=== PATIENT | male | born 1985 | race African-American/Black ===

== ENCOUNTER 2023-07-31 23:26 | Emergency (ER) | payer SELFPAY ==
[2023-07-31 23:31] VITALS: TEMP 98.8; BMI 23.7
[2023-08-01 00:13] LABS: BASO % 0.9 % (0-2.0); EOS % 3.7 % (0-4.5); HEMATOCRIT 23.6 % (35.4-49); HEMOGLOBIN 7.9 GM/dL (11.7-16.9); LYMPH % 9.1 % (8-40); MCH 31.3 pg (25.7-33.7); MCHC 33.4 g/dl (32.0-35.9); MEAN CELL VOLUME 93.7 fl (80-96); MEAN PLT VOLUME 6.6 fl (7.5-11.1); NEUT % 75.3 % (42.8-82.8); PLATELET COUNT 206 10^3/uL (134-434); RBC 2.51 M/mm3 (4.00-5.60); WHITE BLOOD COUNT 5.2 K/mm3 (4.0-10.0)
[2023-08-01 00:21] LABS: INR 1.17 (0.83-1.09); PROTHROMBIN TIME (PATIENT) 13.5 SEC (9.7-13.0)
[2023-08-01 00:24] LABS: ACTIVATED PTT 33.7 SECONDS (25.2-36.5)
[2023-08-01 01:00] LABS: CHLORIDE 99 mmol/L (98-107); POTASSIUM 3.5 mmol/L (3.5-5.1); SODIUM 137 mmol/L (136-145)
[2023-08-01 01:05] LABS: ALBUMIN 2.7 g/dl (3.4-5.0); ANION GAP 14 mmol/L (4-13); CALCIUM 8.9 mg/dL (8.5-10.1); CO2 24 mmol/L (21-32)
[2023-08-01 01:07] LABS: BLOOD UREA NITROGEN 46.1 mg/dL (7-18); GLUCOSE,RANDOM 104 mg/dL (74-106); SGOT/AST 18 U/L (15-37)
[2023-08-01 01:09] LABS: TOT PROT 6.7 g/dl (6.4-8.2)
[2023-08-01 01:10] LABS: CHOLESTEROL 125 mg/dL (50-200)
[2023-08-01 01:11] LABS: LDL CHOLESTEROL (ONLY SJRH) 48 mg/dL (5-100)
[2023-08-01 01:12] LABS: ALK PHOS 146 U/L (45-117); BILIRUBIN,TOTAL 0.7 mg/dL (0.2-1)
[2023-08-01 01:13] LABS: HDL CHOLESTEROL 61 mg/dL (40-60)
[2023-08-01] MEDS ORDERED: ONDANSETRON 4 MG/2 ML VIAL ONE (01:35)
[2023-08-01] MEDS ORDERED: HYDROmorphone HCl 2 MG/ML VIAL ONE ×4 (01:35→04:20)
[2023-08-01 01:44] LABS: CREATININE 10.1 mg/dL (0.55-1.3); SGPT/ALT 12 U/L (13-61)
[2023-08-01] MEDS: ONDANSETRON 4 MG/2 ML VIAL IVPUSH ONE (01:44)
[2023-08-01] MEDS: HYDROmorphone HCl 2 MG/ML VIAL IVPUSH ONE ×4 (01:44→04:50)
[2023-08-01] MEDS ORDERED: MAG HYDROX/AL HYDROX/SIMETH 30 ML UNIT-DOSE CUP ONE (02:24)
[2023-08-01] MEDS: MAG HYDROX/AL HYDROX/SIMETH 30 ML UNIT-DOSE CUP PO ONE (02:28)
[2023-08-01] MEDS ORDERED: FENTANYL CITRATE/PF 50 MCG/ML VIAL ONE (02:56)
[2023-08-01] MEDS ORDERED: ACETAMINOPHEN INJECTION 100 ML IVPB ONE (02:56)
[2023-08-01] MEDS ORDERED: LABETALOL HCL 5 MG/1 ML (100MG/20 ML VIAL) ONE (03:01)
[2023-08-01] MEDS: LABETALOL HCL 5 MG/1 ML (100MG/20 ML VIAL) IVPUSH ONE ×3 (03:11→03:12)
[2023-08-01] MEDS: morphine SULFATE 4 MG/ML VIAL IVPUSH ONE (03:12)
[2023-08-01] MEDS: SODIUM CHLORIDE 1,000 ML IV SCH (03:40)
[2023-08-01] MEDS ORDERED: TENECTEplase 50 MG VIAL IVPUSH ONE (03:44)
[2023-08-01] MEDS: TENECTEplase 50 MG VIAL IVPUSH ONE ×2 (03:51→04:19)
[2023-08-01] MEDS: ACETAMINOPHEN 1000 MG/100 ML BAG IVPB ONE (04:10)
[2023-08-01 05:22] VITALS: PULSE 81; RESP 14
[2023-08-01] MEDS ORDERED: hydrALAZINE HCL 50 MG TABLET (FP) ONE (05:24)
[2023-08-01] MEDS ORDERED: cloNIDine HCL 0.1 MG TABLET ONE (05:24)
[2023-08-01] MEDS: hydrALAZINE HCL 50 MG TABLET (FP) PO ONE (05:31)
[2023-08-01] MEDS: cloNIDine HCL 0.1 MG TABLET PO ONE (05:32)
[2023-08-01 06:10] VITALS: BP 196/105
== END 2023-08-01 05:32 | disposition short-term general hospital (02) ==
LOC: JER 23:26
PROC: 05HN33Z Insertion of Infusion Device into Left Internal Jugular Vein, Percutaneous Approach (ICD-10-PCS; principal; 2023-07-31)
PROC: 3E033GC Introduction of Other Therapeutic Substance into Peripheral Vein, Percutaneous Approach (ICD-10-PCS; 2023-08-01)
PROC: 3E033GC Introduction of Other Therapeutic Substance into Peripheral Vein, Percutaneous Approach (ICD-10-PCS; 2023-08-01)
PROC: 3E033GC Introduction of Other Therapeutic Substance into Peripheral Vein, Percutaneous Approach (ICD-10-PCS; 2023-08-01)
PROC: 3E033NZ Introduction of Analgesics, Hypnotics, Sedatives into Peripheral Vein, Percutaneous Approach (ICD-10-PCS; 2023-08-01)
PROC: 3E03317 Introduction of Other Thrombolytic into Peripheral Vein, Percutaneous Approach (ICD-10-PCS; 2023-08-01)
PROC: 3E033GC Introduction of Other Therapeutic Substance into Peripheral Vein, Percutaneous Approach (ICD-10-PCS; 2023-08-01)
PROC: 3E033GC Introduction of Other Therapeutic Substance into Peripheral Vein, Percutaneous Approach (ICD-10-PCS; 2023-08-01)
PROC: 3E033GC Introduction of Other Therapeutic Substance into Peripheral Vein, Percutaneous Approach (ICD-10-PCS; 2023-08-01)
PROC: 3E033NZ Introduction of Analgesics, Hypnotics, Sedatives into Peripheral Vein, Percutaneous Approach (ICD-10-PCS; 2023-08-01)
PROC: 3E033NZ Introduction of Analgesics, Hypnotics, Sedatives into Peripheral Vein, Percutaneous Approach (ICD-10-PCS; 2023-08-01)
DX: D57.00 Hb-SS disease with crisis, unspecified (principal); I63.511 Cerebral infarction due to unspecified occlusion or stenosis of right middle cerebral artery; R06.02 Shortness of breath; R11.2 Nausea with vomiting, unspecified; Z20.822 Contact with and (suspected) exposure to COVID-19
CPT/HCPCS: 0241U-QW; 36415; 70450-TC; 70496-TC; 70498-TC; 80053; 80061; 82550; 82553; 82962; 83036; 84484; 85025; 85610; 85730; 86850; 86900; 86901; 93005; 93010; 99285-25; J3101